=== PATIENT | female | born 1980 ===

== ENCOUNTER 2017-02-20 09:38 | Inpatient (IN) | payer MEDICAID, SELFPAY ==
[2017-02-20 09:56] VITALS: BMI 32.4
[2017-02-20] MEDS ORDERED: Oxytocin 30 units/LR 500ML 30 U/500 ML BAG IV SCH (11:33)
[2017-02-20] MEDS ORDERED: Lidocaine 1% Inj (20ml) ONE (11:59)
[2017-02-20] MEDS ORDERED: Oxytocin 20 units in LR 2,000 ML IV ONE (11:59)
[2017-02-20 12:04] LABS: BASO % 0.2 % (0.0-2.0); EOS % 0.4 % (0.0-4.0); LYMPH # 2.4 K/uL (1.0-4.3); MEAN CELL VOLUME 81.7 fl (81.0-99.0); MEAN CORPUSCULAR HEMOGLOBIN 27.3 pg (27.0-31.0); MEAN CORPUSCULAR HGB CONC 33.5 g/dL (33.0-37.0); MEAN PLATELET VOLUME 10.2 fl (7.2-11.7); MONO # 0.8 K/uL (0.0-0.8); MONO % 7.9 % (0.0-10.0); NEUT # 7.2 K/uL (1.8-7.0); NEUT % 68.5 % (50.0-75.0); NRBC % 0.1 % (0.0-0.0); RBC 4.38 Mil/uL (3.80-5.20); RED CELL DISTRIBUTION WIDTH 15.2 % (11.5-14.5); WHITE BLOOD COUNT 10.5 K/uL (4.8-10.8)
[2017-02-20] MEDS: Lactated Ringer's 1,000 ML IV SCH ×5 (12:21→21:11)
--- NOTE | 2017-02-20 12:47 | OBADHP ---
Datetime: 02/20/2017 12:02 Admit Comment, IP Provider: 36 y/o @ 40.5 weeks GA presents for scheduled induction of labor . Pt was seen at [facility] on Sunday 02/18 where her exam was 3-4cm. She has no complaints today . Denies VB/LOF/CTX and reports good FM. Denies headaches, changes in vision, epigastric/RUQ pain, SO B, N/V/D. PMD: [facility] PMHx: none POBHx: 1 SAB, FT X3, w/o complications : GBS neg, HIV/RPR neg, Rubella Immune, GC/CHL neg, A+, HbsAg neg PGYNHx: negative MEDS: PNVs ALL: NKDA PSURGHx: none SocialHx: denies drugs, tobacco, ETOH abuse PE: as above A/P: 36 y/o A1 @ 40.5 weeks IUP AMA -admitted for induction of labor -start Pitocin -pt declined epidural for now pt seen and discussed with Dr. Nunu Fields MD PGY2 @ 11:00am OB Hospitalist Addendum: Pt seen and examined by me. Agree w/ above. 36 yo at 40+5 wks f or induction for post-dates. WICHO 7.1 on 02/17/3017. VE: 3/long/ -3 at 11:15 am. FHT reassuring. G BS negative. Will start induction w/ pitocin. (ES) Pelvic Type - PN: Adequate Extremities - PN: Normal Abdomen - PN: Normal Back - PN: Normal Breast - PN: Normal Lungs - PN: Normal Heart - PN: Normal Thyroid - PN: Normal Neurologic - PN: Normal HEENT - PN: Normal General - PN: Normal Presentation-Admit: Vertex FHR - Baseline A Provider: 143 Membranes, Provider: Intact Contraction Comments Provider: no Gestation - Est Wks by US: 40.5 Pool Provider: Negative Vital Signs Provider: Reviewed; Within Normal Limits IP Chief Complaint: Scheduled induction of labor NICHD Variability Prov Fetus A: Moderate 6-25bpm NICHD Accel Fetus A IP Provider: 15X15 FHR Category Provider Fetus A: Category I NICHD Decel Fetus A IP Provider: None Dilatation, Provider: 3 Effacement, Provider: 0 Station, Provider: -3 Genitourinary Exam: Normal DTRs - PN: Normal EGA AdmitDate IP: 40.5 IP Adm Impression: Postterm, intrauterine ; No Active Labor IP Admit Plan: Admit to unit; Initiate labor induction protocol
--- NOTE | 2017-02-20 17:16 | OBPN ---
Datetime: 02/20/2017 16:42 IP Progress Impression: Normal progression of labor IP Procedures: Sterile Vag Exam IP Progress Plan: Continue present management Membranes, Provider: Intact Contraction Comments Provider: q 4 FHR - Baseline A Provider: 130s IP Progress Note Comment: 36 yo at 40+5 wks for induction for post-dates, on pitocin, desire s an epidural FHT reassuring, GBS negative Vital Signs Provider: Reviewed; Within Normal Limits NICHD Accel Fetus A IP Provider: 15X15 NICHD Variability Prov Fetus A: Moderate 6-25bpm Dilatation, Provider: 5 Effacement, Provider: 80 Station, Provider: -2 NICHD Decel Fetus A IP Provider: None Datetime: 02/20/2017 12:02 Pool Provider: Negative Gestation - Est Wks by US: 40.5 Presentation-Admit: Vertex FHR Category Provider Fetus A: Category I
[2017-02-20] MEDS ORDERED: Fentanyl/Bupivacaine HCl 250 ML EPI ONE (17:18)
[2017-02-20] MEDS ORDERED: Bupivacaine HCl 0.25% PF (10 ml) Inj ONE (17:18)
[2017-02-20 21:02] VITALS: O2SAT 100
[2017-02-20] MEDS ORDERED: Lactated Ringer's 1,000 ML IV SCH (22:00)
[2017-02-20] MEDS ORDERED: EPINEPHrine 1 mg/ml (1:1000) Inj ONE (22:17)
[2017-02-20] MEDS ORDERED: Lidocaine 2% PF (10 ml) Amp ONE (22:17)
[2017-02-20] MEDS ORDERED: ePHEDrine 50 mg/ml Inj ONE ×2 (22:30→23:12)
[2017-02-20] MEDS ORDERED: Morphine 1 mg/ml preservative-free Inj(Duramorph) ONE (22:37)
[2017-02-20] MEDS ORDERED: Cellulose Hemostat 2X3 Sheet ONE (23:12)
--- NOTE | 2017-02-20 23:55 | RAD ---
EXAM: XR Abdomen, 1 View CLINICAL HISTORY: 36 years old, female; Screening exam; Post surgical status; R/O foreign body. Emergency ; Additional info: Emergency cs TECHNIQUE: Frontal supine view of the abdomen/pelvis. COMPARISON: No relevant prior studies available. FINDINGS: Intraperitoneal space: Limited evaluation for pneumoperitoneum on supine view. Gastrointestinal tract: Air and stool within mildly dilated large bowel. Bones/joints: No acute fracture. Soft tissues: Skin ana. No radiopaque foreign bodies. IMPRESSION: 1. No radiopaque foreign bodies. 2. Incidental/non-acute findings are described above.
[2017-02-21] MEDS ORDERED: Oxycodone/Acetaminophen 5/325 mg Tab PO PRN ×3 (00:37→03:12)
[2017-02-21] MEDS ORDERED: Oxytocin 30 units/LR 500ML 30 U/500 ML BAG IV ONE (00:40)
[2017-02-21] MEDS ORDERED: Oxytocin 30 units/LR 500ML 30 U/500 ML BAG IV SCH (00:45)
--- NOTE | 2017-02-21 01:50 | OBDS ---
DELIVERY PERSONNEL Delivery Doctor: Marija Eddy MD Scrub Nurse: Helen Cat. RN Cobol Engineer: Helen Cat RN/Amanda Gates RN Anesthesiologist: Tohmas Coronel MD Resident: Jenny Caruso PGY-3 MATERNAL INFORMATION Delivery Anesthesia: Epidural Medications in Delivery: Ancef, 30 units of pitocin, LR Estimated Blood Loss (ml): 900 Placenta Cultured: No Maternal Complications: Other Other Maternal Complications: Arrest of progress, nonreassuring FHR pattern RN Comments: Kiwi opened for possible vaccum extraction. Kiwi not used. Fundal pressure applied. Ext ra C/S scrub pack opened for need of additional bovie Provider Comments: Pre-op dx: 36 yo at 40+5 wks w/ non-reassuring tracing Post-op dx: Same Procedure: Primary low transverse section Surgeon: Nunu Rail Manager: Dr. Moira Caruso, PGY-3 Anesthesia: Epidural Anesthesiologist: Epidural Findings: Viable male infant delivered at 22:45. Nuchal cord x1 reduced. Apgars 9 and 9. Cord p H 7.3. Wt 6#9, 2970 gms. Nl appearing uterus, tubes, and ovaries. Complications: None X-ray done at the end of the case because initial count was not done EBL: 900 mL LABOR SUMMARY EDC: 02/15/2017 00:00 No. Babies in Womb: 1 Attempted: No Labor Anesthesia: Epidural LABOR INFORMATION Reason for Induction: Postterm Onset of Labor: 02/20/2017 11:15 Oxytocin: Induction Group B Beta Strep: Negative Antibiotics # of Doses: 1 Antibiotics Time of Last Dose: 2216 Steroids Given: None Reason Steroids Not Administered: Not Applicable (Annotations: Data stored by N on behalf of user) STAGES OF LABOR Stage 3 hrs: 0 Stage 3 min: 2 Total Time in Labor hrs: 11 Total Time in Labor min: 32 CSECTION DELIVERY Primary Indication: Nonreassuring Status Secondary Indication: Failure to progress CSection Urgency: Emergency CSection Incidence: Primary Labor: Labor Elective: Nonelective CSection Incision: Lower Uterine Transverse BABY A INFORMATION Infant Delivery Date/Time: 02/20/2017 22:45 Method of Delivery: Born in Route : No : N/A Forceps: N/A Vacuum Extraction: N/A Shoulder Dystocia : No SHOULDER DYSTOCIA BABY A Delivery Date/Time: 02/20/2017 22:45 PRESENTATION/POSITION BABY A Presentation: Cephalic Cephalic Presentation: Vertex Breech Presentation: N/A PLACENTA INFORMATION BABY A Placenta Delivery Time : 02/20/2017 22:47 Placenta Method of Delivery: Manual Removal Placenta Status: Delivered SCORES BABY A Heart Rate 1 min: >100 bpm Resp Effort 1 min: Good Cry Reflex Irritability 1 min: Cough or Sneeze or Pulls Away Muscle Tone 1 min: Active Motion Color 1 min: Body [place], Extremities Blue Resuscitation Effort 1 min: N/A SCORE 1 MIN: 9 Heart Rate 5 min: >100 bpm Resp Effort 5 min: Good Cry Reflex Irritability 5 min: Cough or Sneeze or Pulls Away Muscle Tone 5 min: Active Motion Color 5 min: Body [place], Extremities Blue Resuscitation Effort 5 min: N/A SCORE 5 MIN: 9 INFANT INFORMATION BABY A Gestational Age at Delivery: 40.5 Gestational Status: Term Infant Outcome : Liveborn Condition : Stable Infant Sex: Male IDENTIFICATION/MEDS BABY A ID Band Number: [id number] ID Band Location: Left Leg; Left Arm WEIGHT/LENGTH BABY A Infant Birthweight (gms): 2970 Infant Weight (lb): 6 Infant Weight (oz): 9 CORD INFORMATION BABY A No. Cord Vessels: 3 Nuchal Cord : Around Neck x1, Loose Nuchal Cord Other: N/A True Knot: N/A Cord pH Baby Arterial: 7.30 Cord pH Baby Venous: N/A Cord Blood Taken: Yes Banking/Donate Info: N/A Infant Suction: Mouth; Nose ASSESSMENT BABY A Complications: Multiple Variable Decels Physical Findings at Delivery: Within Normal Limits Infant Respirations: Appears Normal Senior Laboratory Technician/ALS Called : No Infant Care By: Dr. Morgan, Transferred To: Nursery
--- NOTE | 2017-02-21 04:47 | OP ---
PREOPERATIVE DIAGNOSIS: This is a 36-year-old G5, P3-0-1-3 at 40 weeks 5 days with nonreassuring heart tracing and arrest of dilation at 9 cm. POSTOPERATIVE DIAGNOSIS: This is a 36-year-old G5, P3-0-1-3 at 40 weeks 5 days with nonreassuring heart tracing and arrest of dilation at 9 cm.. PROCEDURE: Primary low transverse section. SURGEON: Dr. Eddy. EMERGENCY MEDICAL DISPATCHER: Moira Caruso, PGY3. TYPE OF ANESTHESIA: Epidural. ANESTHESIA ADMINISTERED BY: Dr. Rob Coronel. FINDINGS: Viable male , delivered at 22:45. Nuchal cord x1 was reduced. is 9 and 9 at 1 and 5 minutes respectively. The cord pH was 7.3. Weight was 6 pounds 9 ounces or 2,970 grams. Normal appearing uterus, tubes and ovaries. COMPLICATIONS: None. X-ray was done at the end of the case because the initial count was not done. ESTIMATED BLOOD LOSS: About 900 mL. DESCRIPTION OF PROCEDURE: The patient was taken to the operating room where the epidural anesthesia was bolused. She was then prepped and a sterile drape was placed over her legs and sterile blue towels were placed around her abdomen to create a sterile field. The epidural was tested and found to be adequate. A Pfannenstiel skin incision was then made with the scalpel and carried through to the underlying layer fascia with Bovie. The fascia was incised in the midline. The incision was extended laterally with the Banuelos scissors. The inferior aspect of the facial incision was then grasped with the Maverick clamps, elevated and the underlying rectus muscles were dissected off bluntly and with the Bovie. Attention was then turned to the superior aspect of this incision which is in the similar fashion, was grasped, tented up with the Maverick clamps, rectus muscles dissected off bluntly and with the Bovie. The rectus muscles were then in the midline and the peritoneum was entered digitally. The peritoneal incision was then extended superiorly and inferiorly with good visualization of the bladder. The bladder blade was then inserted and the vesicouterine peritoneum was identified, grasped with the pickups, and entered sharply with the Metzenbaum scissors. The incision was extended laterally and the bladder flap was created digitally. The bladder blade was then reinserted and lower uterine segment was incised in transverse fashion with the scalpel. The uterine incision was then extended laterally, digitally, the bladder was removed, the infant's head delivered atraumatically. Nose and mouth were suctioned with the bulb suction. The cord was clamped and cut. The infant was handed out to the waiting kosher butcher. Cord gases were sent and then cord blood was collected. The placenta was then delivered as the uterus was massaged. The uterus was then exteriorized and cleared of all clots and debris with a dry sponge curettage. The uterine incision was repaired with 0 Vicryl in a running locked fashion. A few interrupted stitches of 0 Vicryl were then placed throughout the incision for further hemostasis. It should be noted that the inferior portion of the incision was very thin and very close to the bladder. The abdomen was then well irrigated and the uterus was then returned to the abdomen. The gutters were cleared of all clots. The uterine incision was then reexamined and a single stitch of 0 Vicryl was placed for further hemostasis in the center of the incision. The Bovie was also applied for further hemostasis. Surgicel was then placed over the incision. The rectus muscle was then reapproximated with 2 interrupted stitches of 2-0 chromic. The fascia was then reapproximated with 0 Vicryl in a running fashion. The subcutaneous fat was well irrigated. The fat was then closed with interrupted stitches of 2-0 plain gut. The skin was then closed with ana. The patient tolerated the procedure well. Sponge, lap and needle counts were correct. It should be noted that the initial count was not done. The patient had received 2 g of Ancef prior to the procedure. An abdominal x-ray was done and the image was examined and found to be negative. The patient was taken to recovery room in stable condition. Renato Eddy MD HODA
[2017-02-21] MEDS ORDERED: cefOXitin Sodium 1 GM in Sodium Chloride 0.9% 100 ML IVPB SCH (06:00)
[2017-02-21] MEDS: cefOXitin Sodium 1 GM in Sodium Chloride 0.9% 100 ML IVPB SCH ×3 (06:22→22:15)
[2017-02-21 07:24] LABS: MEAN CELL VOLUME 82.8 fl (81.0-99.0); MEAN CORPUSCULAR HEMOGLOBIN 27.5 pg (27.0-31.0); MEAN CORPUSCULAR HGB CONC 33.3 g/dL (33.0-37.0); RBC 3.05 Mil/uL (3.80-5.20); RED CELL DISTRIBUTION WIDTH 15.4 % (11.5-14.5); WHITE BLOOD COUNT 12.5 K/uL (4.8-10.8)
[2017-02-21 08:06] LABS: HEMOGLOBIN 8.4 g/dL (12.0-16.0)
--- NOTE | 2017-02-21 08:58 | OBPPN ---
Datetime: 02/21/2017 08:55 PP Pain Prov: Within normal limits PP Nausea Prov: Denies PP Flatus Prov: Yes PP Breasts Prov: Normal PP Heart Prov: Normal PP Lungs Prov: Normal PP Abdomen/Uterus Prov: Normal PP Lochia Prov: Normal PP Vulva/Perineum Prov: Normal PP CVA Tenderness Prov: Normal PP Extremities Prov: Normal PP Comments Phys Exam Prov: Fundus firm under umbilicus Incision clean/dry/intact PP Impression Prov: Normal progression PP Plan Prov: Continue present management PP Progress Note Prov: Patient denies CP, no SOB, no N/V, tolerating PO diet, ambulating/voiding wel l, mild lochia, abdominal pain tolerable with meds A/P POD #1 1. Continue regular diet 2. Discontinue blankenship later today 3. Encourage ambulation/ 4. Percocet/Motrin prn pain 5. Continue all other orders IP PP Procedures: None Vital Signs Provider PP: Reviewed; Within Normal Limits
[2017-02-21] MEDS ORDERED: [UNRECOGNIZED DRUG - REMARK] PO SCH (09:00)
[2017-02-22] MEDS: Oxycodone/Acetaminophen 5/325 mg Tab PO PRN ×2 (09:14→17:46)
--- NOTE | 2017-02-22 09:38 | OBPPN ---
Datetime: 02/22/2017 06:16 PP Pain Prov: Within normal limits PP Nausea Prov: Denies PP Flatus Prov: No PP BM Prov: No PP Breasts Prov: Normal PP Heart Prov: Normal PP Lungs Prov: Normal PP Abdomen/Uterus Prov: Normal PP Lochia Prov: Normal PP Vulva/Perineum Prov: Normal PP CVA Tenderness Prov: Not Done PP Extremities Prov: Normal PP C/S Incision Prov: Normal PP Progress Prov: Normal PP Impression Prov: Normal progression PP Plan Prov: Continue present management PP Progress Note Prov: This is a 36 YO who had a on 02/20/17 @22:45. Seen and examin ed at bedside. No changes overnight. Pt reports mild abdominal pain but well controlled with pain med ications. Pt is ambulating to and from the bathroom. Pt is breast feeding baby. Tolerating PO diet. L ochia is similar to menses volume. No blood noted on urination. Denies n/v, fever, chills, chest pain , dyspnea, dizziness. Dressing removed. denies flatus and BM. PE: VS stable Gen: patient is fatigue, NAD CV: S1S2, no M/G/R PUL: clear breath sounds b/l, no wheezing Abdomen: BS+, incision site noted, ana intact. Healing well, no discharge noted. Ten derness in area around incision site and in the LLQ. Ext: no pedal edema, NT A/P 36 YO who had a on 02/20/17 @22:45. VS stable, patient remains afebrile, toleratin g pain with pain medications, tolerating diet, doing well. OOB with caution SCDs for DVT prophylaxis, ambulating Motrin and Percocet for pain patient is encouraged to breastfeed and ambulate care will continue Sera Hernandez, PGY-I OB Hospitalist note: This pt was seen and examined by me. Agree with above note. EDWAR WING PP Procedures: None Vital Signs Provider PP: Reviewed
--- NOTE | 2017-02-23 11:15 | OBDCSUM ---
Datetime: 02/23/2017 06:17 Discharged to, Provider: Home Follow up at, Provider: in clinic Disch Instr Activity: Normal activity Disch Instr Diet: Regular Discharge Instructions, Provider: Routine instructions given Discharge Diagnosis, Provider: Term Delivered; Postterm Delivery Discharge Time: 02/23/2017 04:00 Follow up in weeks, Provider: 1 week for staple removal, 6 for PP and 4-5 days for baby Disch Referrals: None Contraception discussed, Prov: Yes Disch Activity Restrictions: No exercising; No lifting; No driving; No sexual activity; Nothing in v agina - Cosmos, tampons, douche Discharge Comment, Provider: 36 YO who underwent a for nonreasoning FHR pattern on 02/20/17 and delivered at 22:45. Gave to baby boy, weight of 2970. Pt had an uncomplicated pregn eric and no complications during period. incision intact w/ ana in place, cl katharine and dry. DISCHARGE INSTRUCTIONS: 1. Encourage 2. PNV 1 tab po q/day 3. Ibuprofen 600 mg 1 tab po prn q6 if moderate pain. Percocet 5/325 mg 1tab po prn q6h if severe pain 4. continue Ferrous sulfate 325mg PO BID daily 5. Ambulatory with caution, nothing per vagina, no heavy lifting, avoid stairs, if excessive bleed ing or fever without relief from Tylenol go to ED 6. F/U in clinic in 1 week for ana removal, 6 weeks for PP, and 4-5 days for baby Sera Mary, PGY-I The patient was seen with the resident and I agree with the notes patient cleared for discharge Contraception after Delivery: Undecided
--- NOTE | 2017-02-23 11:15 | OBPPN ---
Datetime: 02/23/2017 05:59 PP Pain Prov: Within normal limits PP Nausea Prov: Denies PP Flatus Prov: No PP BM Prov: No PP Breasts Prov: Not Done PP Heart Prov: Normal PP Lungs Prov: Normal PP Abdomen/Uterus Prov: Normal PP Lochia Prov: Normal PP Vulva/Perineum Prov: Normal PP CVA Tenderness Prov: Not Done PP Extremities Prov: Normal PP C/S Incision Prov: Normal PP Progress Prov: Normal PP Impression Prov: Normal progression PP Plan Prov: Continue present management; Discharge PP Progress Note Prov: S: 36 YO who underwent a for nonreasoning FHR pattern on 02/20/17 and delivered at 22:45. Pt is seen and examined by bedside in AM. No changes overnight. Endorses abdominal pain but controlled with pain medications. Patient is ambulating, breast feeding baby, bladimir erating PO diet. Lochia is similar to light menses and voiding freely. Denies n/v, fever, chills, [address] pain, dyspnea, dizziness, headache. Denies flatus and BM. Of note, patient speaks [place], [employer] cad application support specialist used #[id number]. PE: VS stable Gen: NAD CV: S1S2 no murmurs PUL: clear breath sounds b/l, no wheezing Abdomen: BS+, incision site noted, ana in place, dry and intact. Uterus is firm Ext: no pedal edema, NT A/P 36 Yo s/p on 02/20/17 @22:45. Patient remains afebrile, tolerating pain with pain medications, PO diet, doing well. Pt is ambulating Motrin, Percocet, ketorolac for pain pt is encouraged to breastfeed and ambulate care will continue D/c to home today Give PP precautions Follow up in clinic for staple removal in 1 week, in 6 weeks for PP and 4-5 days for baby. Sera Hernandez PGY-I The patient was seen with the resident I agree with the note Encourage ambulation, regular diet, analgesics as needed, no heavy lifting, follow-up one week for staple removal IP PP Procedures: None Vital Signs Provider PP: Reviewed
[2017-02-23 16:39] VITALS: BP 129/69; PULSE 93; RESP 20; TEMP 98.3
== END 2017-02-23 12:20 | disposition home or self-care (01) | DRG 371 ==
LOC: H.EROB2 09:38 → H.L&D 11:28 → H.OB/GYN 02-21 03:45
PROVIDERS: ADMIT Obstetrics & Gynecology; ATTEND Obstetrics & Gynecology
PROC: 4A1HXCZ Monitoring of Products of Conception, Cardiac Rate, External Approach (ICD-10-PCS; 2017-02-20)
PROC: 10D00Z1 Extraction of Products of Conception, Low, Open Approach (ICD-10-PCS; principal; 2017-02-21)
DX: O48.0 Post-term pregnancy (principal); O09.523 Supervision of elderly multigravida, third trimester; O76 Abnormality in fetal heart rate and rhythm complicating labor and delivery; Z37.0 Single live birth; O62.0 Primary inadequate contractions; O69.81X0 Labor and delivery complicated by cord around neck, without compression, not applicable or unspecified; Z3A.40 40 weeks gestation of pregnancy